=== PATIENT | male | born 1980 | race Caucasian/White ===

== ENCOUNTER 2019-02-26 19:48 | Emergency (ER) | payer OTHER ==
[~2019-02-26] VITALS: Ht 182.9 cm; Wt 113.4 kg
[~2019-02-26 19:48] MED LIST: CEPH500 PO; HYDACE5 PO; IBUP600 PO; IBUP800 PO; METO10 PO; OXYACE5T PO; PENVK500 PO; SULTRISS PO
== END 2019-02-26 20:50 | disposition home or self-care (01) ==
LOC: ER 19:48
DX: S29.011A Strain of muscle and tendon of front wall of thorax, initial encounter (principal); X58.XXXA Exposure to other specified factors, initial encounter
CPT/HCPCS: 71101; 99283-25

== ENCOUNTER 2019-03-01 19:18 | Emergency (ER) | payer OTHER ==
[~2019-03-01] VITALS: Ht 182.9 cm; Wt 115.7 kg
[2019-03-01] MEDS ORDERED: Voltaren100 GM TOP (21:35)
== END 2019-03-01 21:45 | disposition home or self-care (01) ==
LOC: ER 19:18
DX: S22.32XA Fracture of one rib, left side, initial encounter for closed fracture (principal); F17.210 Nicotine dependence, cigarettes, uncomplicated; Z88.5 Allergy status to narcotic agent; X58.XXXA Exposure to other specified factors, initial encounter
CPT/HCPCS: 71101; 96372; 99284-25; J1885

== ENCOUNTER 2019-03-07 13:38 | Inpatient (IN) | payer OTHER ==
[~2019-03-07] VITALS: Ht 182.9 cm; Wt 117.9 kg
[~2019-03-07 13:38] MED LIST changes: +Voltaren100 GM TOP
[2019-03-07 15:12] LABS: BASOPHILS ABSOLUTE AUTO 0.02 K/mm3 (0.00-0.23); BASOPHILS PERCENT AUTO 0 % (0-2); EOSINOPHILS ABSOLUTE AUTO 0.04 K/mm3 (0.00-0.68); EOSINOPHILS PERCENT AUTO 0 % (0-6); Hematocrit 46.6 % (37.0-53.0); Hemoglobin 15.7 g/dL (13.5-17.5); IMMATURE GRAN ABSOLUTE AUTO 0.03 K/mm3 (0.00-0.10); IMMATURE GRAN PERCENT AUTO 0 % (0-1); LYMPHOCYTES PERCENT AUTO 11 % (21-46); MONOCYTES PERCENT AUTO 6 % (4-13); Mean Corpuscular HGB 28.8 pg (26.0-34.0); Mean Corpuscular HGB Conc 33.7 g/dL (31.5-36.5); Mean Corpuscular Volume 86 fL (80-100); Mean Platelet Volume 9.6 fL (9.1-12.4); NEUTROPHILS PERCENT AUTO 82 % (41-73); Platelet Count 166 K/mm3 (150-400); RDW Coefficient Variation 12.7 % (11.7-14.2); RDW Standard Deviation 39.2 fL (35.1-46.3); Red Blood Cell Count 5.45 M/mm3 (4.30-5.90); White Blood Cell Count 9.79 K/mm3 (4.00-11.30)
[2019-03-07 15:27] LABS: Alanine Aminotransfer (ALT/SGP 91 U/L (12-78); Albumin, Blood 3.5 g/dL (3.4-5.0); Albumin/Globulin Ratio 0.8 (0.8-1.8); Alk Phos 148 U/L (50-136); Anion Gap 8 mmol/L (6-16); Aspartate Aminotrans (AST/SGOT 107 U/L (12-37); Bilirubin, Total 1.6 mg/dL (0.1-1.0); Blood Urea Nitrogen 15 mg/dL (8-24); Bun/Creatinine Ratio 12.2 (12.0-20.0); CO2, Blood 24 mmol/L (21-32); Calcium, Blood 9.5 mg/dL (8.5-10.1); Chloride, Blood 100 mmol/L (98-108); Creatinine, Blood 1.23 mg/dL (0.60-1.20); Globulin, Blood 4.5 g/dL (2.2-4.0); Glomerular Filtration Rate >60 (60-); Glucose, Blood 103 mg/dL (70-99); Potassium, Blood 3.6 mmol/L (3.5-5.5); Sodium, Blood 132 mmol/L (136-145)
[2019-03-07 16:03] LABS: Source, Urine Clean Catch
[2019-03-07 16:15] LABS: Bilirubin, Urine Neg (Neg); Blood, Urine Neg (Neg); Glucose Qualitative, Urine Neg (Neg); Ketones, Urine 1+ (Neg); Leukocyte Esterase, Urine Neg (Neg); Nitrite, Urine Neg (Neg); Protein, Urine Neg (Neg); Urobilinogen, Urine NORM (Normal)
[2019-03-07 16:18] LABS: Appearance, Urine Clear (Clear); Color, Urine Yellow (P-Yellow)
--- NOTE | 2019-03-07 18:56 | NUR ---
PT AOX4 AND INDEPENDENT. PT SETTLED INTO ROOM AND CALL LIGHT WITHIN REACH. TREATED FOR PAIN PER EMAR X1. WILL CONTINUE TO MONITOR.
--- NOTE | 2019-03-08 04:51 | NUR ---
SHIFT SUMMARY PT ADMITTED FOR PANCREATITIS. HE WAS IN SEVERE PAIN YESTERDAY. HE RECEIVED DILAUDID MULTIPLE TIMES THIS SHIFT. HIS HR AND BP WERE ELEVATED AND THE MD HAS BEEN CONTACTED MULTIPLE TIMES WELL. AT APPROX 2300, STATED HE COULD HAVE DILAUDID 1MG ONE TIME FOR SEVERE PAIN. THIS HELPED HIS PAIN A BIT BUT NOT HIS VS. HIS BP WAS AVERAGING 150/108 AND HR WAS 140+. CALLED MD AND HE AUTHORIZED LOBETALOL FOR HTN AND ELEVATED PULSE. IT BROUGHT HIS HR DOWN A BIT TO 135 BPM BUT HIS BP REMAINED ABOUT THE SAME. HE WAS ALSO PUT ON TELEMETRY AT THIS TIME. CALLED PCU AND SPOKE WITH GIL TO GET TELE RESULTS. HE WAS SINUS TACH IN THE 120'S AFTER THE LOBETALOL FOR A SHORT TIME THEN HIS HR WENT BACK UP TO 130'S. CALLED THE MD AGAIN AT APPROX 0245 AND MD ORDERED METOPROLOL 5MG. BEFORE ADMINISTERING THE METOPROLOL, HIS HR WAS SINUS TACH AND IN THE 130'S, THEN AFTER THE METOPROLOL, IT WENT DOWN TO 110-118. IT REMAINED DOWN FOR AWHILE EXCEPT WHEN UP TO BATHROOM. HE ALSO C/O ACID REFLUX 0400 AND HE RECEIVED ZOFRAN 4MG VIA IV, WHICH WAS EFFECTIVE IN RELIEVING THE REFLUX. SPOKE WITH PCU AGAIN AND HIS TELE IS AVERAGING 134 BPM IN SINUS TACH THIS MORNING.
[2019-03-08 05:05] LABS: BASOPHILS ABSOLUTE AUTO 0.03 K/mm3 (0.00-0.23); BASOPHILS PERCENT AUTO 0 % (0-2); EOSINOPHILS ABSOLUTE AUTO 0.08 K/mm3 (0.00-0.68); EOSINOPHILS PERCENT AUTO 1 % (0-6); Hemoglobin 15.9 g/dL (13.5-17.5); IMMATURE GRAN ABSOLUTE AUTO 0.12 K/mm3 (0.00-0.10); IMMATURE GRAN PERCENT AUTO 1 % (0-1); LYMPHOCYTES ABSOLUTE AUTO 0.96 K/mm3 (0.84-5.20); LYMPHOCYTES PERCENT AUTO 7 % (21-46); MONOCYTES ABSOLUTE AUTO 0.78 K/mm3 (0.16-1.47); MONOCYTES PERCENT AUTO 6 % (4-13); Mean Corpuscular HGB 29.4 pg (26.0-34.0); Mean Corpuscular HGB Conc 33.1 g/dL (31.5-36.5); Mean Platelet Volume 10.2 fL (9.1-12.4); NEUTROPHILS ABSOLUTE AUTO 11.53 K/mm3 (1.96-9.15); NEUTROPHILS PERCENT AUTO 85 % (41-73); Platelet Count 160 K/mm3 (150-400); RDW Coefficient Variation 13.2 % (11.7-14.2)
[2019-03-08 05:06] LABS: Mean Corpuscular Volume 89 fL (80-100)
[2019-03-08 05:39] LABS: Anion Gap 8 mmol/L (6-16); Blood Urea Nitrogen 12 mg/dL (8-24); Bun/Creatinine Ratio 9.2 (12.0-20.0); CO2, Blood 23 mmol/L (21-32); Calcium, Blood 8.5 mg/dL (8.5-10.1); Chloride, Blood 103 mmol/L (98-108); Cholesterol 208 mg/dL (50-200); Creatinine, Blood 1.31 mg/dL (0.60-1.20); Glomerular Filtration Rate >60 (60-); Glucose, Blood 103 mg/dL (70-99); HDL Cholesterol 23 mg/dL (>39); LDL/HDL RATIO Unable to Calculate; Low Density Lipoprotein Chol Unable to Calculate mg/dL (0-110); Magnesium, Blood 1.7 mg/dL (1.6-2.4); Phosphorus, Blood 2.8 mg/dL (2.5-4.9); Potassium, Blood 5.4 mmol/L (3.5-5.5); Sodium, Blood 134 mmol/L (136-145); Triglycerides 901 mg/dL (30-160); Very Low Density Lipoprot Chol Unable to Calculate mg/dL (6-32)
--- NOTE | 2019-03-08 17:16 | NUR ---
PT AOX4 AND COOPERATIVE OF CARE. PT STARTED OUT SHIFT WITH ABDOMINIAL PAIN AND WAS TREATED PER EMAR. PAIN HAS IMPROVE THROUGH THE DAY AND LAST TWO DOSES HAVE BEEN A DECREASED AMOUNT. PT BP 143/ 99 P123 AT 0750, TREATED WITH 50MG METOPROLOL AND BP 134/89 P113 AT 1539 MEDICATION SEEMS EFFECTIVE AT THIS TIME. PT REPORTS HE IS FEELING IMPROVED THIS AFTERNOON. PT INDEPENDENT WILL CONTINUE TO MONITOR.
[2019-03-09 05:06] LABS: BASOPHILS ABSOLUTE AUTO 0.03 K/mm3 (0.00-0.23); BASOPHILS PERCENT AUTO 0 % (0-2); EOSINOPHILS ABSOLUTE AUTO 0.15 K/mm3 (0.00-0.68); EOSINOPHILS PERCENT AUTO 1 % (0-6); Hematocrit 40.1 % (37.0-53.0); Hemoglobin 12.8 g/dL (13.5-17.5); IMMATURE GRAN ABSOLUTE AUTO 0.24 K/mm3 (0.00-0.10); IMMATURE GRAN PERCENT AUTO 2 % (0-1); LYMPHOCYTES ABSOLUTE AUTO 0.88 K/mm3 (0.84-5.20); LYMPHOCYTES PERCENT AUTO 7 % (21-46); MONOCYTES ABSOLUTE AUTO 0.92 K/mm3 (0.16-1.47); MONOCYTES PERCENT AUTO 8 % (4-13); Mean Corpuscular HGB 29.2 pg (26.0-34.0); Mean Corpuscular HGB Conc 31.9 g/dL (31.5-36.5); NEUTROPHILS ABSOLUTE AUTO 10.11 K/mm3 (1.96-9.15); NEUTROPHILS PERCENT AUTO 82 % (41-73); Platelet Count 121 K/mm3 (150-400); RDW Coefficient Variation 13.2 % (11.7-14.2); RDW Standard Deviation 44.8 fL (35.1-46.3); Red Blood Cell Count 4.38 M/mm3 (4.30-5.90); White Blood Cell Count 12.33 K/mm3 (4.00-11.30)
[2019-03-09 05:08] LABS: Mean Corpuscular Volume 92 fL (80-100)
--- NOTE | 2019-03-09 05:37 | NUR ---
SHIFT SUMMARY SLEPT ON/OFF T/O NIGHT. STATES PAIN IN MID-L SIDE ABD 7/10, MEDICATED 3X W/2MG DILAUDID PER ORDERS. REPORTS PAIN DECREASES TO 3/10 WHEN REASSESSED. CONT PULSE OX WAS ALARMING LAST NIGHT & SPO2 @88% AFTER PT RECIEVED PAIN MEDS, PT CURRENTLY ON 2L O2 NC, PLACED BY RT. DENIES ANY DYSPNEA, OR N/V. IS PASSING GAS & BELCHING FREQUENTLY. FLUIDS RUNNING @125ML/HR PER ORDERS. TELE IN PLACE, RUNNING SINUS TACH W/HR 115-127. PT HAD LOW GRADE TEMP OF 100.4 @BEGINNING OF SHIFT & TYLENOL WAS GIVEN AROUND SHIFT CHANGE & TEMP HAS BEEN TRNDING DOWN SINCE, THIS AM TEMP IS 99.5. CALL LIGHT IS IN REACH & SIGNIFICANT OTHER HAS BEEN @BEDSIDE T/O NIGHT. I WCTM UNTIL DAY SHIFT RN ASSUMES CARE.
[2019-03-09 05:40] LABS: Bun/Creatinine Ratio 9.6 (12.0-20.0); Calcium, Blood 7.6 mg/dL (8.5-10.1); Creatinine, Blood 1.67 mg/dL (0.60-1.20); Magnesium, Blood 1.3 mg/dL (1.6-2.4); Potassium, Blood 4.6 mmol/L (3.5-5.5)
[2019-03-09 11:10] LABS: Source, Urine Clean Catch
[2019-03-09 11:42] LABS: Appearance, Urine Clear (Clear); Bilirubin, Urine Neg (Neg); Blood, Urine 2+ (Neg); Color, Urine Yellow (P-Yellow); Glucose Qualitative, Urine Neg (Neg); Ketones, Urine Neg (Neg); Leukocyte Esterase, Urine Neg (Neg); Nitrite, Urine Neg (Neg); Protein, Urine 2+ (Neg); Urobilinogen, Urine 1+ (Normal)
[2019-03-09 11:55] LABS: Bacteria Rare /hpf; Red Blood Cells, Urine 0-2 /hpf (0-2); Squamous Epithelial Cells Not Seen /hpf (Few); White Blood Cells, Urine 0-2 /hpf (0-5)
--- NOTE | 2019-03-09 18:13 | NUR ---
Shift Summary A/Ox4. Pleasant and cooperative. Medicated for LUQ 09/26 pain x 4 with results down to 3-06/27. Pt still on 2L NC with SPO2 ranging 92-96%. Pt remains tachycardic t/o the day. Denies nausea, vomiting. Last oral temp 100.5, will medicate with Tylenol and monitor. No other concerns at this time.
[2019-03-10 05:12] LABS: BASOPHILS ABSOLUTE AUTO 0.03 K/mm3 (0.00-0.23); BASOPHILS PERCENT AUTO 0 % (0-2); EOSINOPHILS ABSOLUTE AUTO 0.16 K/mm3 (0.00-0.68); EOSINOPHILS PERCENT AUTO 2 % (0-6); IMMATURE GRAN ABSOLUTE AUTO 0.21 K/mm3 (0.00-0.10); IMMATURE GRAN PERCENT AUTO 2 % (0-1); LYMPHOCYTES ABSOLUTE AUTO 0.99 K/mm3 (0.84-5.20); LYMPHOCYTES PERCENT AUTO 10 % (21-46); MONOCYTES ABSOLUTE AUTO 0.74 K/mm3 (0.16-1.47); MONOCYTES PERCENT AUTO 8 % (4-13); Mean Corpuscular HGB 29.4 pg (26.0-34.0); Mean Corpuscular HGB Conc 32.4 g/dL (31.5-36.5); Mean Corpuscular Volume 91 fL (80-100); Mean Platelet Volume 9.9 fL (9.1-12.4); NEUTROPHILS ABSOLUTE AUTO 7.43 K/mm3 (1.96-9.15); NEUTROPHILS PERCENT AUTO 78 % (41-73); Platelet Count 132 K/mm3 (150-400); RDW Coefficient Variation 13.1 % (11.7-14.2); RDW Standard Deviation 43.3 fL (35.1-46.3); Red Blood Cell Count 4.08 M/mm3 (4.30-5.90); White Blood Cell Count 9.56 K/mm3 (4.00-11.30)
[2019-03-10 05:37] LABS: Albumin, Blood 2.3 g/dL (3.4-5.0); Anion Gap 7 mmol/L (6-16); Blood Urea Nitrogen 13 mg/dL (8-24); CO2, Blood 26 mmol/L (21-32); Calcium, Blood 8.1 mg/dL (8.5-10.1); Chloride, Blood 98 mmol/L (98-108); Glomerular Filtration Rate >60 (60-); Glucose, Blood 98 mg/dL (70-99); Phosphorus, Blood 1.7 mg/dL (2.5-4.9); Potassium, Blood 3.9 mmol/L (3.5-5.5); Sodium, Blood 131 mmol/L (136-145)
--- NOTE | 2019-03-10 07:18 | NUR ---
SHIFT SUMMARY AOX4. VSS, AFEBRILE T/O NIGHT. TELE IN PLACE, SINUS TACH W/HR 104. REPORTS PAIN 4-6/10 IN ABD, MEDICATED W/DILAUDID PER ORDERS. STATES HE FEELS HIS PAIN IS GETTING BETTER. HAD A FEW LIQUID ORANGE BM THIS SHIFT. DENIES N/V OR SOB. CALL LIGHT IN REACH.
--- NOTE | 2019-03-10 09:00 | NUR ---
Clear Liquid Per Dr. Perez, verbal orders received to start clear liquid. NPO changed to Clear liquid diet.
--- NOTE | 2019-03-10 13:26 | NUR ---
DC Tele & IV hydration Patient tolerating PO fluids well. Dr. Perez informed, orders received to DC IV NS. Also received orders to DC tele.
--- NOTE | 2019-03-10 16:31 | NUR ---
Shift Summary A/Ox4. Patient has been a little anxious about going home for the holidays because his kids will be traveling from [place] to see him. This afternoon, a little over intermediate through receiving Sodium Phosphate, pt c/o dizziness, flushed feeling, slightly blurred vision, and nausea; however, pt did not c/o of this yesterday. Pt did start on a clear liquid diet today and went outside to smoke 2 times today prior to onset of symptoms. These did improve after Sodium Phosphate was stopped. Pt has been on RA and saturating >95%, denies SOB. Afebrile and HR up to 108. Medicated for 6/10 pain x 1 with good results down to 2/10. Medicated for headache x 1. No other concerns, will continue to monitor.
--- NOTE | 2019-03-10 18:14 | NUR ---
assumed care assumed care of patient at dinnertie. patietn denies pain, nausea, and shortness of breath. call light in reach.
[2019-03-11 05:05] LABS: BASOPHILS ABSOLUTE AUTO 0.03 K/mm3 (0.00-0.23); BASOPHILS PERCENT AUTO 0 % (0-2); EOSINOPHILS ABSOLUTE AUTO 0.17 K/mm3 (0.00-0.68); EOSINOPHILS PERCENT AUTO 3 % (0-6); Hematocrit 37.1 % (37.0-53.0); Hemoglobin 11.9 g/dL (13.5-17.5); IMMATURE GRAN ABSOLUTE AUTO 0.17 K/mm3 (0.00-0.10); IMMATURE GRAN PERCENT AUTO 3 % (0-1); LYMPHOCYTES ABSOLUTE AUTO 1.05 K/mm3 (0.84-5.20); LYMPHOCYTES PERCENT AUTO 16 % (21-46); MONOCYTES ABSOLUTE AUTO 0.61 K/mm3 (0.16-1.47); MONOCYTES PERCENT AUTO 9 % (4-13); Mean Corpuscular HGB 28.9 pg (26.0-34.0); Mean Corpuscular HGB Conc 32.1 g/dL (31.5-36.5); Mean Corpuscular Volume 90 fL (80-100); Mean Platelet Volume 9.5 fL (9.1-12.4); NEUTROPHILS ABSOLUTE AUTO 4.71 K/mm3 (1.96-9.15); NEUTROPHILS PERCENT AUTO 70 % (41-73); Platelet Count 168 K/mm3 (150-400); RDW Coefficient Variation 12.9 % (11.7-14.2); RDW Standard Deviation 42.7 fL (35.1-46.3); Red Blood Cell Count 4.12 M/mm3 (4.30-5.90); White Blood Cell Count 6.74 K/mm3 (4.00-11.30)
[2019-03-11 05:26] LABS: Albumin, Blood 2.2 g/dL (3.4-5.0); Anion Gap 8 mmol/L (6-16); Blood Urea Nitrogen 8 mg/dL (8-24); Bun/Creatinine Ratio 9.4 (12.0-20.0); CO2, Blood 27 mmol/L (21-32); Calcium, Blood 8.6 mg/dL (8.5-10.1); Chloride, Blood 98 mmol/L (98-108); Creatinine, Blood 0.85 mg/dL (0.60-1.20); Glomerular Filtration Rate >60 (60-); Glucose, Blood 97 mg/dL (70-99); Phosphorus, Blood 1.8 mg/dL (2.5-4.9); Potassium, Blood 3.6 mmol/L (3.5-5.5); Sodium, Blood 133 mmol/L (136-145)
[2019-03-11] MEDS ORDERED: METO50 PO (09:31)
[2019-03-11] MEDS ORDERED: TRAM50 PO (09:32)
[2019-03-11] MEDS ORDERED: ONDA4 PO (09:32)
[2019-03-11] MEDS ORDERED: LEVO750 PO (09:33)
--- NOTE | 2019-03-11 10:23 | NUR ---
DISCHARGE DISCHARGE MEDICATIONS AND INSTRUCTIONS EXPLAINED TO PATIENT. PATIENT STATED UNDERSTANDING. CARE MANAGEMENT PROVIDED PATIENT [employer] [facility] PATIENT DOES NOT HAVE PCP. IV REMOVED WITHOUT DIFFICULTY. BELONGINGS WITH PATIENT. PATIENT AMBULATED TO PRIVATE VEHICLE WITH RN.
== END 2019-03-11 09:45 | disposition home or self-care (01) | DRG 438 ==
LOC: ER 13:38 → MEDS 16:29 → ENPENDDIS 03-11 08:31 → MEDS 03-11 09:45
PROVIDERS: Family Medicine; Physician Assistant; ADMIT Hospitalist
DX: K85.90 Acute pancreatitis without necrosis or infection, unspecified (principal); J18.9 Pneumonia, unspecified organism; E87.1 Hypo-osmolality and hyponatremia; N17.9 Acute kidney failure, unspecified; J98.11 Atelectasis; E83.39 Other disorders of phosphorus metabolism; D64.9 Anemia, unspecified; D69.6 Thrombocytopenia, unspecified; I10 Essential (primary) hypertension; E83.42 Hypomagnesemia; R00.0 Tachycardia, unspecified; E66.01 Morbid (severe) obesity due to excess calories; F17.210 Nicotine dependence, cigarettes, uncomplicated; Z68.35 Body mass index [BMI] 35.0-35.9, adult
CPT/HCPCS: 36415; 71046; 74177; 80048; 80053; 80061; 80069; 81001; 81003; 83605; 83690; 83735; 84100; 84145; 85025; 87040; 94762; 96361; 96374-59; 96375; 99285-25; A9270; J0360; J1170; J1650; J1956; J2405; J3475; J3480; J7030; J7060; Q9967

== ENCOUNTER 2019-07-20 16:23 | Inpatient (IN) | payer OTHER ==
[~2019-07-20] VITALS: Ht 182.9 cm; Wt 119.3 kg
[~2019-07-20 16:23] MED LIST changes: +LEVO750 PO; +METO100ER PO; +ONDA4 PO; +TRAM50 PO
[2019-07-20 17:00] LABS: BASOPHILS ABSOLUTE AUTO 0.03 K/mm3 (0.00-0.23); BASOPHILS PERCENT AUTO 0 % (0-2); EOSINOPHILS ABSOLUTE AUTO 0.01 K/mm3 (0.00-0.68); EOSINOPHILS PERCENT AUTO 0 % (0-6); Hematocrit 49.4 % (37.0-53.0); Hemoglobin 17.3 g/dL (13.5-17.5); IMMATURE GRAN ABSOLUTE AUTO 0.02 K/mm3 (0.00-0.10); IMMATURE GRAN PERCENT AUTO 0 % (0-1); LYMPHOCYTES ABSOLUTE AUTO 1.45 K/mm3 (0.84-5.20); LYMPHOCYTES PERCENT AUTO 16 % (21-46); MONOCYTES ABSOLUTE AUTO 0.68 K/mm3 (0.16-1.47); MONOCYTES PERCENT AUTO 8 % (4-13); Mean Corpuscular HGB 29.8 pg (26.0-34.0); Mean Corpuscular Volume 85 fL (80-100); Mean Platelet Volume 9.1 fL (9.1-12.4); NEUTROPHILS ABSOLUTE AUTO 6.86 K/mm3 (1.96-9.15); NEUTROPHILS PERCENT AUTO 76 % (41-73); Platelet Count 156 K/mm3 (150-400); RDW Coefficient Variation 13.3 % (11.7-14.2); RDW Standard Deviation 41.2 fL (35.1-46.3); Red Blood Cell Count 5.81 M/mm3 (4.30-5.90); White Blood Cell Count 9.05 K/mm3 (4.00-11.30)
[2019-07-20 17:20] LABS: Alanine Aminotransfer (ALT/SGP 262 U/L (12-78); Albumin, Blood 3.7 g/dL (3.4-5.0); Albumin/Globulin Ratio 0.8 (0.8-1.8); Alk Phos 150 U/L (50-136); Anion Gap 10 mmol/L (6-16); Aspartate Aminotrans (AST/SGOT 154 U/L (12-37); Bilirubin, Total 1.7 mg/dL (0.1-1.0); Blood Urea Nitrogen 14 mg/dL (8-24); Bun/Creatinine Ratio 13.9 (12.0-20.0); CO2, Blood 23 mmol/L (21-32); Calcium, Blood 8.7 mg/dL (8.5-10.1); Chloride, Blood 100 mmol/L (98-108); Cholesterol 243 mg/dL (50-200); Creatinine, Blood 1.01 mg/dL (0.60-1.20); Globulin, Blood 4.7 g/dL (2.2-4.0); Glomerular Filtration Rate >60 (60-); Glucose, Blood 114 mg/dL (70-99); Magnesium, Blood 1.5 mg/dL (1.6-2.4); Potassium, Blood 3.2 mmol/L (3.5-5.5); Sodium, Blood 133 mmol/L (136-145); Total Protein, Blood 8.4 g/dL (6.4-8.2)
[2019-07-20 17:21] LABS: Triglycerides 988 mg/dL (30-160)
--- NOTE | 2019-07-21 04:49 | NUR ---
SUMMARY PT ARRIVED TO FLOOR IN SOME DISCOMFORT. PT HAS TX PER EMAR WITH GOOD RELIEF. PT HAD NO OTHER ISSUES NOTED. PT HAS BEEN ABLE TO SLEEP WELL. PT CURRENTLY AWAKE W/ SOME DISCOMFORT. WILL BE MEDICATING PT ORDERED. CALL LIGHT IN REACH.
[2019-07-21 05:09] LABS: BASOPHILS ABSOLUTE AUTO 0.03 K/mm3 (0.00-0.23); BASOPHILS PERCENT AUTO 0 % (0-2); EOSINOPHILS PERCENT AUTO 1 % (0-6); Hematocrit 46.1 % (37.0-53.0); Hemoglobin 15.7 g/dL (13.5-17.5); IMMATURE GRAN ABSOLUTE AUTO 0.04 K/mm3 (0.00-0.10); IMMATURE GRAN PERCENT AUTO 1 % (0-1); LYMPHOCYTES ABSOLUTE AUTO 1.52 K/mm3 (0.84-5.20); LYMPHOCYTES PERCENT AUTO 19 % (21-46); MONOCYTES ABSOLUTE AUTO 0.61 K/mm3 (0.16-1.47); MONOCYTES PERCENT AUTO 8 % (4-13); Mean Corpuscular HGB 29.4 pg (26.0-34.0); Mean Corpuscular HGB Conc 34.1 g/dL (31.5-36.5); Mean Corpuscular Volume 86 fL (80-100); Mean Platelet Volume 9.4 fL (9.1-12.4); NEUTROPHILS ABSOLUTE AUTO 5.84 K/mm3 (1.96-9.15); NEUTROPHILS PERCENT AUTO 72 % (41-73); Platelet Count 107 K/mm3 (150-400); RDW Coefficient Variation 13.5 % (11.7-14.2); RDW Standard Deviation 43.2 fL (35.1-46.3); Red Blood Cell Count 5.34 M/mm3 (4.30-5.90); White Blood Cell Count 8.14 K/mm3 (4.00-11.30)
[2019-07-21 05:31] LABS: Alanine Aminotransfer (ALT/SGP 177 U/L (12-78); Albumin/Globulin Ratio 0.7 (0.8-1.8); Alk Phos 125 U/L (50-136); Anion Gap 9 mmol/L (6-16); Aspartate Aminotrans (AST/SGOT 98 U/L (12-37); Bilirubin, Total 1.6 mg/dL (0.1-1.0); Blood Urea Nitrogen 10 mg/dL (8-24); Bun/Creatinine Ratio 9.4 (12.0-20.0); CO2, Blood 24 mmol/L (21-32); Calcium, Blood 8.5 mg/dL (8.5-10.1); Chloride, Blood 100 mmol/L (98-108); Creatinine, Blood 1.06 mg/dL (0.60-1.20); Globulin, Blood 4.5 g/dL (2.2-4.0); Glomerular Filtration Rate >60 (60-); Glucose, Blood 102 mg/dL (70-99); Potassium, Blood 3.6 mmol/L (3.5-5.5); Sodium, Blood 133 mmol/L (136-145); Total Protein, Blood 7.5 g/dL (6.4-8.2)
--- NOTE | 2019-07-21 17:03 | NUR ---
PT AOX4 AND COOPERATIVE OF ALL CARE. PT HAS HAD ABDOMINAL PAIN TREATED PER EMAR. BP HAS BEEN HIGH TODAY AND DOTOR IS AWARE ADDED METOPROLOL TO EMAR. PT JUST RECEIVE MED FOR HIGH BP PER EMAR WILL RECHECK. PT CALLS APPROPRIATELY. WILL CONTINUE TO MONITOR.
--- NOTE | 2019-07-21 19:15 | NUR ---
ASSUMED CARE RECEIVED REPORT FROM SATURNINO KING. ASSUMED CARE OF PT. RESTING COMFORTABLY AT THIS TIME, NO S/S ACUTE DISTRESS NOTED. CALL LIGHT, POSSESSIONS IN REACH, WILL CONTINUE TO MONITOR.
--- NOTE | 2019-07-22 04:50 | NUR ---
SHIFT SUMMARY PT SLEPT ON AND OFF T/O NIGHT, NO ACUTE EVENTS NOTED. BP STABLE AT THIS TIME. PAIN CONTROLLED WITH MEDICATIONS ORDERED, PT COMFORTABLE AT THIS TIME. WAS MONITORED EVERY 1-2 HOURS WITH NEEDS MET, DENIES NEEDS AT THIS TIME. CALL LIGHT, POSSESSIONS IN REACH, BED ALARM ON. WILL CONTINUE TO MONITOR UNTIL DAY RN ASSUMES CARE.
[2019-07-22] MEDS ORDERED: ACET325 PO (10:42)
[2019-07-22] MEDS ORDERED: SENNA PLUS 8.61 EACH PO (10:43)
[2019-07-22] MEDS ORDERED: TRAM50 PO (10:45)
--- NOTE | 2019-07-22 11:29 | NUR ---
PT DISCHARGED. PT DISCHARGED IN STABLE CONDITION WITH VSS. PT EDUCATED ON DC INSTRUCTIONS AND FOLLOW UP APPOINTMENT. HARD SCRIPT GIVEN TO PT. PT ESCORTED OUT BY THIS RN. TO BE DRIVEN HOME BY MOTHER.
== END 2019-07-22 11:22 | disposition home or self-care (01) | DRG 440 ==
LOC: ER 16:23 → MEDS 19:23
PROVIDERS: Emergency Medicine; ADMIT Internal Medicine
DX: K85.20 Alcohol induced acute pancreatitis without necrosis or infection (principal); E78.1 Pure hyperglyceridemia; I10 Essential (primary) hypertension; K76.0 Fatty (change of) liver, not elsewhere classified; K86.0 Alcohol-induced chronic pancreatitis; F17.210 Nicotine dependence, cigarettes, uncomplicated; E66.9 Obesity, unspecified; Z68.33 Body mass index [BMI] 33.0-33.9, adult
CPT/HCPCS: 36415; 74176; 80053; 82465; 83690; 83735; 84478; 85025; 96361; 96365; 96372-59; 96375; 99285-25; C9113; J0780; J1170; J1200; J1650; J3411; J3475; J7030; J7042

== ENCOUNTER → 2020-01-20 | Outpatient (CLI) | payer OTHER ==
[~2020-01-20] MED LIST changes: +ACET325 PO; +SENNA PLUS 8.61 EACH PO
[2020-01-20 09:21] LABS: BASOPHILS ABSOLUTE AUTO 0.06 K/mm3 (0.00-0.23); BASOPHILS PERCENT AUTO 1 % (0-2); EOSINOPHILS ABSOLUTE AUTO 0.11 K/mm3 (0.00-0.68); EOSINOPHILS PERCENT AUTO 2 % (0-6); Hematocrit 47.6 % (37.0-53.0); Hemoglobin 16.6 g/dL (13.5-17.5); IMMATURE GRAN ABSOLUTE AUTO 0.05 K/mm3 (0.00-0.10); IMMATURE GRAN PERCENT AUTO 1 % (0-1); LYMPHOCYTES ABSOLUTE AUTO 1.78 K/mm3 (0.84-5.20); LYMPHOCYTES PERCENT AUTO 24 % (21-46); MONOCYTES ABSOLUTE AUTO 0.39 K/mm3 (0.16-1.47); MONOCYTES PERCENT AUTO 5 % (4-13); Mean Corpuscular HGB 30.5 pg (26.0-34.0); Mean Corpuscular HGB Conc 34.9 g/dL (31.5-36.5); Mean Corpuscular Volume 87 fL (80-100); Mean Platelet Volume 9.1 fL (9.1-12.4); NEUTROPHILS PERCENT AUTO 68 % (41-73); Platelet Count 167 K/mm3 (150-400); RDW Coefficient Variation 12.8 % (11.7-14.2); RDW Standard Deviation 40.5 fL (35.1-46.3); Red Blood Cell Count 5.45 M/mm3 (4.30-5.90); White Blood Cell Count 7.49 K/mm3 (4.00-11.30)
== END | disposition home or self-care (01) ==
LOC: LAB EV 09:15 → LAB SHORT 09:15
PROVIDERS: Physician Assistant Medical
DX: M25.542 Pain in joints of left hand (principal)
CPT/HCPCS: 84550; 85025

== ENCOUNTER 2020-03-16 10:18 | Emergency (ER) | payer OTHER ==
[~2020-03-16] VITALS: Ht 182.9 cm; Wt 117.9 kg
[2020-03-16 10:48] LABS: BASOPHILS ABSOLUTE AUTO 0.05 K/mm3 (0.00-0.23); BASOPHILS PERCENT AUTO 1 % (0-2); EOSINOPHILS PERCENT AUTO 2 % (0-6); Hematocrit 48.6 % (37.0-53.0); Hemoglobin 16.3 g/dL (13.5-17.5); IMMATURE GRAN ABSOLUTE AUTO 0.02 K/mm3 (0.00-0.10); IMMATURE GRAN PERCENT AUTO 0 % (0-1); LYMPHOCYTES ABSOLUTE AUTO 2.12 K/mm3 (0.84-5.20); LYMPHOCYTES PERCENT AUTO 33 % (21-46); MONOCYTES ABSOLUTE AUTO 0.46 K/mm3 (0.16-1.47); MONOCYTES PERCENT AUTO 7 % (4-13); Mean Corpuscular HGB 29.3 pg (26.0-34.0); Mean Corpuscular HGB Conc 33.5 g/dL (31.5-36.5); Mean Corpuscular Volume 87 fL (80-100); Mean Platelet Volume 9.6 fL (9.1-12.4); NEUTROPHILS ABSOLUTE AUTO 3.78 K/mm3 (1.96-9.15); NEUTROPHILS PERCENT AUTO 58 % (41-73); NRBC ABSOLUTE 0.02 K/mm3 (0.00-0.02); NRBC Auto 0.3 /100 WBC (0.0-0.2); Platelet Count 162 K/mm3 (150-400); RDW Coefficient Variation 12.7 % (11.7-14.2); RDW Standard Deviation 40.8 fL (35.1-46.3); Red Blood Cell Count 5.57 M/mm3 (4.30-5.90); White Blood Cell Count 6.53 K/mm3 (4.00-11.30)
[2020-03-16 11:11] LABS: Alanine Aminotransfer (ALT/SGP 174 U/L (12-78); Albumin, Blood 3.5 g/dL (3.4-5.0); Albumin/Globulin Ratio 0.8 (0.8-1.8); Alk Phos 128 U/L (50-136); Anion Gap 9 mmol/L (6-16); Aspartate Aminotrans (AST/SGOT 148 U/L (12-37); Bilirubin, Total 0.5 mg/dL (0.1-1.0); Blood Urea Nitrogen 12 mg/dL (8-24); Bun/Creatinine Ratio 12.9 (12.0-20.0); CO2, Blood 24 mmol/L (21-32); Calcium, Blood 8.9 mg/dL (8.5-10.1); Chloride, Blood 107 mmol/L (98-108); Creatinine, Blood 0.93 mg/dL (0.60-1.20); Globulin, Blood 4.5 g/dL (2.2-4.0); Glomerular Filtration Rate >60 (60-); Glucose, Blood 118 mg/dL (70-99); Potassium, Blood 4.2 mmol/L (3.5-5.5); Sodium, Blood 140 mmol/L (136-145); Troponin I <0.015 ng/mL (0.000-0.040)
[2020-03-16] MEDS ORDERED: ONDA4ODT MM (11:42)
[2020-03-16] MEDS ORDERED: OXYACE7.5T PO (11:42)
== END 2020-03-16 12:10 | disposition home or self-care (01) ==
LOC: ER 10:18
PROVIDERS: Emergency Medicine
DX: K85.90 Acute pancreatitis without necrosis or infection, unspecified (principal); I10 Essential (primary) hypertension; E78.1 Pure hyperglyceridemia; F17.210 Nicotine dependence, cigarettes, uncomplicated; Z88.5 Allergy status to narcotic agent; Z79.899 Other long term (current) drug therapy
CPT/HCPCS: 36415; 71046; 80053; 83690; 84484; 85025; 93005; 93010; 96374; 96375; 99284-25; J1170; J2405; J7030

== ENCOUNTER 2020-03-23 08:40 | Inpatient (IN) | payer OTHER ==
[~2020-03-23] VITALS: Ht 182.9 cm; Wt 121.6 kg
[~2020-03-23 08:40] MED LIST changes: +ONDA4ODT MM; +OXYACE7.5T PO
[2020-03-23 09:41] LABS: BASOPHILS ABSOLUTE AUTO 0.06 K/mm3 (0.00-0.23); BASOPHILS PERCENT AUTO 1 % (0-2); EOSINOPHILS ABSOLUTE AUTO 0.17 K/mm3 (0.00-0.68); EOSINOPHILS PERCENT AUTO 2 % (0-6); Hematocrit 40.1 % (37.0-53.0); Hemoglobin 13.5 g/dL (13.5-17.5); IMMATURE GRAN ABSOLUTE AUTO 0.54 K/mm3 (0.00-0.10); IMMATURE GRAN PERCENT AUTO 6 % (0-1); LYMPHOCYTES ABSOLUTE AUTO 2.02 K/mm3 (0.84-5.20); LYMPHOCYTES PERCENT AUTO 22 % (21-46); MONOCYTES ABSOLUTE AUTO 0.75 K/mm3 (0.16-1.47); MONOCYTES PERCENT AUTO 8 % (4-13); Mean Corpuscular HGB 29.7 pg (26.0-34.0); Mean Corpuscular HGB Conc 33.7 g/dL (31.5-36.5); Mean Corpuscular Volume 88 fL (80-100); Mean Platelet Volume 9.6 fL (9.1-12.4); NEUTROPHILS ABSOLUTE AUTO 5.61 K/mm3 (1.96-9.15); NEUTROPHILS PERCENT AUTO 61 % (41-73); Platelet Count 266 K/mm3 (150-400); RDW Coefficient Variation 12.6 % (11.7-14.2); Red Blood Cell Count 4.55 M/mm3 (4.30-5.90); White Blood Cell Count 9.15 K/mm3 (4.00-11.30)
[2020-03-23 10:04] LABS: Alanine Aminotransfer (ALT/SGP 88 U/L (12-78); Albumin, Blood 2.8 g/dL (3.4-5.0); Albumin/Globulin Ratio 0.5 (0.8-1.8); Alk Phos 166 U/L (50-136); Anion Gap 9 mmol/L (6-16); Aspartate Aminotrans (AST/SGOT 56 U/L (12-37); Bilirubin, Total 0.9 mg/dL (0.1-1.0); Blood Urea Nitrogen 19 mg/dL (8-24); Bun/Creatinine Ratio 15.1 (12.0-20.0); CO2, Blood 24 mmol/L (21-32); Calcium, Blood 9.8 mg/dL (8.5-10.1); Chloride, Blood 103 mmol/L (98-108); Creatinine, Blood 1.26 mg/dL (0.60-1.20); Globulin, Blood 5.5 g/dL (2.2-4.0); Glomerular Filtration Rate >60 (60-); Glucose, Blood 115 mg/dL (70-99); Potassium, Blood 3.4 mmol/L (3.5-5.5); Sodium, Blood 136 mmol/L (136-145); Total Protein, Blood 8.3 g/dL (6.4-8.2)
[2020-03-23 10:57] LABS: Source, Urine Clean Catch
[2020-03-23 11:13] LABS: Appearance, Urine Clear (Clear); Bilirubin, Urine Neg (Neg); Blood, Urine Neg (Neg); Color, Urine Yellow (P-Yellow); Glucose Qualitative, Urine Neg (Neg); Ketones, Urine Neg (Neg); Leukocyte Esterase, Urine Neg (Neg); Nitrite, Urine Neg (Neg); Protein, Urine Neg (Neg); Urobilinogen, Urine NORM (Normal)
[2020-03-23 11:49] LABS: Triglycerides 286 mg/dL (30-160)
[2020-03-23 15:33] LABS: U Amphetamine Screen Not Detected; U Barbituate Screen Not Detected; U Benzodiazapine Screen Not Detected; U Buprenorphine Screen Not Detected; U Cannabinoids Screen DETECTED; U Cocaine Screen Not Detected; U Methadone Screen Not Detected; U Methamphetamine Screen Not Detected; U Opiates Screen DETECTED; U Oxycodone Screen Not Detected; U Phencyclidine Screen Not Detected; U Propoxyphene Screen Not Detected
--- NOTE | 2020-03-23 18:07 | NUR ---
PT HAS BEEN STABLE SINCE ADMISSION. PAIN CONTROLLED WITH PRN MEDS. PT VOIDING WELL. IV INFUSING. CONT NPO. REPEAT LABS FOR AM. PT HAS NO NAUSEA. TELE, ST. PT HAS BEEN HYPERTENSIVE AND TACHYCARDIC. PT USES CALL LIGHT APPROPRIATELY NEEDED.
--- NOTE | 2020-03-24 04:28 | NUR ---
SHIFT SUMMARY S/P ACUTE PANCREATITIS, A/O X4, VSS, NPO T/O SHIFT, VOIDING WELL, INDEPENDENT IN ROOM, PAIN CONTROLLED PER EMAR. CALL LIGHT IN REACH, WILL CONTINUE TO MONITOR AND REPORT TO ONCOMING DAY RN.
[2020-03-24 05:28] LABS: BASOPHILS ABSOLUTE AUTO 0.05 K/mm3 (0.00-0.23); BASOPHILS PERCENT AUTO 1 % (0-2); EOSINOPHILS ABSOLUTE AUTO 0.15 K/mm3 (0.00-0.68); EOSINOPHILS PERCENT AUTO 2 % (0-6); Hematocrit 39.2 % (37.0-53.0); Hemoglobin 12.9 g/dL (13.5-17.5); IMMATURE GRAN ABSOLUTE AUTO 0.37 K/mm3 (0.00-0.10); IMMATURE GRAN PERCENT AUTO 5 % (0-1); LYMPHOCYTES ABSOLUTE AUTO 1.79 K/mm3 (0.84-5.20); LYMPHOCYTES PERCENT AUTO 25 % (21-46); MONOCYTES PERCENT AUTO 7 % (4-13); Mean Corpuscular HGB 29.3 pg (26.0-34.0); Mean Corpuscular HGB Conc 32.9 g/dL (31.5-36.5); Mean Corpuscular Volume 89 fL (80-100); Mean Platelet Volume 9.6 fL (9.1-12.4); NEUTROPHILS ABSOLUTE AUTO 4.35 K/mm3 (1.96-9.15); NEUTROPHILS PERCENT AUTO 60 % (41-73); Platelet Count 282 K/mm3 (150-400); RDW Coefficient Variation 12.7 % (11.7-14.2); White Blood Cell Count 7.21 K/mm3 (4.00-11.30)
[2020-03-24 06:02] LABS: Alanine Aminotransfer (ALT/SGP 107 U/L (12-78); Albumin, Blood 2.6 g/dL (3.4-5.0); Albumin/Globulin Ratio 0.5 (0.8-1.8); Alk Phos 140 U/L (50-136); Anion Gap 7 mmol/L (6-16); Aspartate Aminotrans (AST/SGOT 85 U/L (12-37); Bilirubin, Total 0.6 mg/dL (0.1-1.0); Blood Urea Nitrogen 12 mg/dL (8-24); Bun/Creatinine Ratio 10.1 (12.0-20.0); CO2, Blood 27 mmol/L (21-32); Calcium, Blood 9.4 mg/dL (8.5-10.1); Chloride, Blood 105 mmol/L (98-108); Creatinine, Blood 1.19 mg/dL (0.60-1.20); Globulin, Blood 4.8 g/dL (2.2-4.0); Glomerular Filtration Rate >60 (60-); Glucose, Blood 101 mg/dL (70-99); Magnesium, Blood 1.9 mg/dL (1.6-2.4); Phosphorus, Blood 3.6 mg/dL (2.5-4.9); Potassium, Blood 3.8 mmol/L (3.5-5.5); Sodium, Blood 139 mmol/L (136-145); Total Protein, Blood 7.4 g/dL (6.4-8.2)
--- NOTE | 2020-03-24 17:51 | NUR ---
PT CONTINUES TO HAVE HTN, PT ASYMPTOMATIC, DR. TROTTER NOTIFIED, SEE NEW ORDER
--- NOTE | 2020-03-24 17:52 | NUR ---
SUMMARY: NO ACUTE CHANGE TODAY. A/O, NOTED HTN OTHERWISE VSS. DIET ADVANCED TOLERATED. PT REPORTS FEELING FINE AFTER SMALL AMTS OF CLEAR AND FULL LIQ. DENIES N/V, OR DISTENTION. PAIN SEEMS TO BE CONTROLED WITH PO MANAGEMENT. PT INDEP IN ROOM. NO ACUTE SAFETY CONCERNS. WILL MONITOR AND REPORT TO NOC RN
--- NOTE | 2020-03-25 06:35 | NUR ---
SHIFT SUMMARY S/P ACUTE PANCREATITIS, A/O X4, VSS, TOLERATING PO, VOIDING WELL, INDEPENDENT IN ROOM. CALL LIGHT IN REACH, WILL CONTINUE TO MONITOR AND REPORT TO ONCOMING DAY RN.
[2020-03-25] MEDS ORDERED: ONDA4ODT MM (13:06)
[2020-03-25] MEDS ORDERED: HYDCHL25 PO (13:06)
[2020-03-25] MEDS ORDERED: Percocet 5-3251 EACH PO (13:06)
--- NOTE | 2020-03-25 15:51 | NUR ---
PT DISCHARGED THE PT VERBALIZED UNDERSTANDING OF THE DC INSTRUCTIONS, THE PT APPEARED TO BE BREATHING EASILY ON RA, THE PTS PRESCRIPTIONS WERE FAXED TO [facility] PER HIS REQUEST, THE PT DECLINED A WHEELCHAIR AND AMBULATED OUT STEADY ON HIS FEET
== END 2020-03-25 15:00 | disposition home or self-care (01) | DRG 440 ==
LOC: ER 08:40 → MEDS 12:26 → SURS 12:36
PROVIDERS: Emergency Medicine; Nurse Practitioner Acute Care; ADMIT Internal Medicine
DX: K85.90 Acute pancreatitis without necrosis or infection, unspecified (principal); E87.6 Hypokalemia; I10 Essential (primary) hypertension; E78.5 Hyperlipidemia, unspecified; K76.0 Fatty (change of) liver, not elsewhere classified; F17.210 Nicotine dependence, cigarettes, uncomplicated
CPT/HCPCS: 36415; 74177; 80053; 81003; 83615; 83690; 83735; 84100; 84478; 84484; 85025; 96365-59; 96375; 96376; 99285-25; A9270; A9270-GY; C9113; J1170; J1650; J2405; J3411; J3475; J3480; J7030; J7042; J7120; Q2038; Q9967

== ENCOUNTER 2021-02-12 12:50 | Emergency (ER) | payer OTHER ==
[~2021-02-12] VITALS: Ht 182.9 cm; Wt 117.0 kg
[~2021-02-12 12:50] MED LIST changes: +HYDCHL25 PO; +Percocet 5-3251 EACH PO
[2021-02-12 13:18] LABS: BASOPHILS ABSOLUTE AUTO 0.08 K/mm3 (0.00-0.23); BASOPHILS PERCENT AUTO 1 % (0-2); EOSINOPHILS ABSOLUTE AUTO 0.15 K/mm3 (0.00-0.68); EOSINOPHILS PERCENT AUTO 2 % (0-6); Hematocrit 45.4 % (37.0-53.0); Hemoglobin 16.7 g/dL (13.5-17.5); IMMATURE GRAN ABSOLUTE AUTO 0.02 K/mm3 (0.00-0.10); IMMATURE GRAN PERCENT AUTO 0 % (0-1); LYMPHOCYTES ABSOLUTE AUTO 2.07 K/mm3 (0.84-5.20); LYMPHOCYTES PERCENT AUTO 31 % (21-46); MONOCYTES ABSOLUTE AUTO 0.45 K/mm3 (0.16-1.47); MONOCYTES PERCENT AUTO 7 % (4-13); Mean Corpuscular HGB 30.3 pg (26.0-34.0); Mean Corpuscular HGB Conc 36.8 g/dL (31.5-36.5); Mean Corpuscular Volume 82 fL (80-100); Mean Platelet Volume 10.6 fL (9.1-12.4); NEUTROPHILS ABSOLUTE AUTO 3.94 K/mm3 (1.96-9.15); NEUTROPHILS PERCENT AUTO 59 % (41-73); Platelet Count 208 K/mm3 (150-400); RDW Coefficient Variation 11.9 % (11.7-14.2); RDW Standard Deviation 35.9 fL (35.1-46.3); Red Blood Cell Count 5.52 M/mm3 (4.30-5.90); White Blood Cell Count 6.71 K/mm3 (4.00-11.30)
[2021-02-12] MEDS ORDERED: HYDROCODONE-AC1 EAC7 PO (13:33)
[2021-02-12] MEDS ORDERED: VERA180ERB PO (13:33)
[2021-02-12 13:48] LABS: Alanine Aminotransfer (ALT/SGP 230 U/L (12-78); Albumin, Blood 3.9 g/dL (3.4-5.0); Albumin/Globulin Ratio 0.7 (0.8-1.8); Alk Phos 130 U/L (50-136); Anion Gap 18 mmol/L (6-16); Aspartate Aminotrans (AST/SGOT 103 U/L (12-37); Bilirubin, Total 1.1 mg/dL (0.1-1.0); Blood Urea Nitrogen 14 mg/dL (8-24); Bun/Creatinine Ratio 13.5 (12.0-20.0); CO2, Blood 25 mmol/L (21-32); Calcium, Blood 10.1 mg/dL (8.5-10.1); Chloride, Blood 79 mmol/L (98-108); Creatinine, Blood 1.04 mg/dL (0.60-1.20); Globulin, Blood 5.4 g/dL (2.2-4.0); Glomerular Filtration Rate >60 (60-); Glucose, Blood 624 mg/dL (70-99); Potassium, Blood 3.4 mmol/L (3.5-5.5); Sodium, Blood 122 mmol/L (136-145); Total Protein, Blood 9.3 g/dL (6.4-8.2)
[2021-02-12 13:50] LABS: Source, Urine Clean Catch
[2021-02-12 13:52] LABS: Appearance, Urine Clear (Clear); Bilirubin, Urine Neg (Neg); Blood, Urine Neg (Neg); Color, Urine Yellow (P-Yellow); Glucose Qualitative, Urine 4+ (Neg); Ketones, Urine 3+ (Neg); Leukocyte Esterase, Urine Neg (Neg); Nitrite, Urine Neg (Neg); Protein, Urine 1+ (Neg); Urobilinogen, Urine NORM (Normal)
[2021-02-12 14:18] LABS: Base Excess Venous 6.2 mmol/L; Bicarbonate Venous 29.6 mmol/L (24.0-30.0); PCO2 Venous 39.8 mmHg (38-42); pH Blood Venous 7.48 (7.34-7.37)
[2021-02-12 14:23] LABS: Beta-hydroxybutyrate 42.9 mg/dL (0.2-2.8); Magnesium, Blood 2.1 mg/dL (1.6-2.4)
[2021-02-12] MEDS ORDERED: METF500 PO (16:38)
== END 2021-02-12 17:18 | disposition home or self-care (01) ==
LOC: ER 12:50
PROVIDERS: Emergency Medicine; Physician Assistant
DX: E11.9 Type 2 diabetes mellitus without complications (principal); E87.6 Hypokalemia; Z88.5 Allergy status to narcotic agent; Z79.899 Other long term (current) drug therapy; Z79.891 Long term (current) use of opiate analgesic; F17.210 Nicotine dependence, cigarettes, uncomplicated
CPT/HCPCS: 36415; 80053; 82010; 82803; 82947; 83036; 83690; 83735; 84100; 85025; 99283; J1815; J7030

== ENCOUNTER 2021-07-14 21:16 | Emergency (ER) | payer OTHER ==
[~2021-07-14] VITALS: Ht 182.9 cm; Wt 124.7 kg
[~2021-07-14 21:16] MED LIST changes: +HYDROCODONE-AC1 EAC7 PO; +METF500 PO; +VERA180ERB PO
== END 2021-07-15 00:32 | disposition left against medical advice (07) ==
LOC: ER 21:16
DX: M54.2 Cervicalgia (principal); M79.601 Pain in right arm; Z53.21 Procedure and treatment not carried out due to patient leaving prior to being seen by health care provider
CPT/HCPCS: 99281

== ENCOUNTER 2023-01-13 02:38 | Inpatient (IN) | payer OTHER ==
[~2023-01-13] VITALS: Ht 182.9 cm; Wt 116.0 kg
[2023-01-13] VITALS (28 sets, daily range): BP systolic 110–173; BP diastolic 56–115
[2023-01-13 03:11] LABS: BASOPHILS ABSOLUTE AUTO 0.08 K/mm3 (0.00-0.23); BASOPHILS PERCENT AUTO 1 % (0-2); EOSINOPHILS ABSOLUTE AUTO 0.04 K/mm3 (0.00-0.68); EOSINOPHILS PERCENT AUTO 1 % (0-6); Hematocrit 36.7 % (37.0-53.0); Hemoglobin 12.6 g/dL (13.5-17.5); IMMATURE GRAN ABSOLUTE AUTO 0.06 K/mm3 (0.00-0.10); IMMATURE GRAN PERCENT AUTO 1 % (0-1); LYMPHOCYTES ABSOLUTE AUTO 2.19 K/mm3 (0.84-5.20); LYMPHOCYTES PERCENT AUTO 33 % (21-46); MONOCYTES PERCENT AUTO 6 % (4-13); Mean Corpuscular HGB Conc 34.3 g/dL (31.5-36.5); Mean Corpuscular Volume 85 fL (80-100); Mean Platelet Volume 9.8 fL (9.1-12.4); NEUTROPHILS ABSOLUTE AUTO 3.94 K/mm3 (1.96-9.15); NEUTROPHILS PERCENT AUTO 59 % (41-73); Platelet Count 173 K/mm3 (150-400); RDW Coefficient Variation 13.6 % (11.7-14.2); RDW Standard Deviation 42.3 fL (35.1-46.3); Red Blood Cell Count 4.34 M/mm3 (4.30-5.90); White Blood Cell Count 6.71 K/mm3 (4.00-11.30)
[2023-01-13 03:15] LABS: Base Excess Venous -8.4 mmol/L; Bicarbonate Venous 18.4 mmol/L (24.0-30.0); PCO2 Venous 33.1 mmHg (38-42); pH Blood Venous 7.33 (7.34-7.37)
[2023-01-13 03:44] LABS: Albumin, Blood 3.4 g/dL (3.4-5.0); Albumin/Globulin Ratio 0.6 (0.8-1.8); Bilirubin, Total 0.6 mg/dL (0.1-1.0); Bun/Creatinine Ratio 10.7 (12.0-20.0); Calcium, Blood 9.2 mg/dL (8.5-10.1); Creatinine, Blood 0.75 mg/dL (0.60-1.20); Globulin, Blood 5.4 g/dL (2.2-4.0); Potassium, Blood 3.9 mmol/L (3.5-5.5); Total Protein, Blood 8.8 g/dL (6.4-8.2)
[2023-01-13 03:49] LABS: Source, Urine Clean Catch
[2023-01-13 03:50] LABS: Bilirubin, Urine Neg (Neg); Blood, Urine 1+ (Neg); Glucose Qualitative, Urine 4+ (Neg); Ketones, Urine 3+ (Neg); Leukocyte Esterase, Urine Neg (Neg); Nitrite, Urine Neg (Neg); Protein, Urine 1+ (Neg); Urobilinogen, Urine NORM (Normal)
[2023-01-13 03:59] LABS: Appearance, Urine Clear (Clear); Color, Urine Pale Yellow (P-Yellow)
[2023-01-13 04:00] LABS: Bacteria Rare /hpf; Red Blood Cells, Urine 0-2 /hpf (0-2); Squamous Epithelial Cells Rare /hpf (Few); White Blood Cells, Urine 0-2 /hpf (0-5)
[2023-01-13 05:40] LABS: Glucose, Blood 536 mg/dL (70-99)
[2023-01-13 06:01] LABS: Anion Gap 20 mmol/L (6-16); Blood Urea Nitrogen 9 mg/dL (8-24); Bun/Creatinine Ratio 13.4 (12.0-20.0); CO2, Blood 18 mmol/L (21-32); Chloride, Blood 92 mmol/L (98-108); Creatinine, Blood 0.67 mg/dL (0.60-1.20); Glomerular Filtration Rate 119 (60-); Phosphorus, Blood 4.4 mg/dL (2.5-4.9); Potassium, Blood 3.9 mmol/L (3.5-5.5); Sodium, Blood 130 mmol/L (136-145)
[2023-01-13 06:02] LABS: Beta-hydroxybutyrate 70.9 mg/dL (0.2-2.8)
--- NOTE | 2023-01-13 06:51 | NUR ---
NEW ER ADMIT TO ICU 3: PT ARRIVED TO THE UNIT FROM THE ER AROUND 0615; PT ADMITTED TO THE UNIT WITH DKA AND ON AN INSULIN DRIP. UPON ARRIVAL CBG IN THE 400'S AND INSULIN GTT STARTED AT 3 UNITS/HR; PT DENIES N/V AT THIS TIME BUT DID THROW UP TWICE IN THE ER, EMESIS BAG PLACED AT BEDSIDE. PT A&O X 4, PLEASANT AND COOPERATIVE. PT ON RA, NO DISTRESS NOTED. ST ON MONITOR WITH HR 100'S AND SBP 110-120'S. PT REPORTS SOME ABD PAIN IN LOWER QUADRANTS; PT STATED THAT HE HAD A BLOODY BOWEL MOVEMENT IN THE ER, HX OF HEMMROIDS BUT HAS NEVER SEEN THIS MUCH BLOOD BEFORE WITH BOWEL MOVEMENTS, DR FARRELL AWARE. NS WITH 20 MEQ KCL INFUSING AT 250 MLS/HR. PIV X 2 THAT BOTH FLUSH AND DRAW BLOOD. CALL LIGHT IN REACH, WILL REPORT OFF TO ONCOMING RN.
--- NOTE | 2023-01-13 07:15 | NUR ---
CARE ASSUMPTION DURING BEDSIDE SHIFT REPORT Audrey MOYER RN THE PT IS ASLEEP IN BED ON RM AIR. PT HAS INSULIN GTT RUNNING AT 3 UNITS/HR AND NS W KCL RUNNING AT 250ML/HR. PT AROUSES TO MY VOICE AND COMMUNICATES APPROPRIATELY. PT DENYING ANY FURTHER NEEDS AT THIS TIME.
[2023-01-13 07:51] LABS: Hematocrit 31.5 % (37.0-53.0); Hemoglobin 10.8 g/dL (13.5-17.5)
[2023-01-13 08:05] LABS: Glucose, Blood 353 mg/dL (70-99)
[2023-01-13 10:52] LABS: Albumin, Blood 2.9 g/dL (3.4-5.0); Anion Gap 14 mmol/L (6-16); Blood Urea Nitrogen 8 mg/dL (8-24); CO2, Blood 23 mmol/L (21-32); Calcium, Blood 9.4 mg/dL (8.5-10.1); Chloride, Blood 94 mmol/L (98-108); Creatinine, Blood 0.62 mg/dL (0.60-1.20); Glomerular Filtration Rate 122 (60-); Glucose, Blood 268 mg/dL (70-99); Phosphorus, Blood 4.4 mg/dL (2.5-4.9); Sodium, Blood 131 mmol/L (136-145)
[2023-01-13 11:32] LABS: Calcium, Blood 9.4 mg/dL (8.5-10.1); Magnesium, Blood 1.7 mg/dL (1.6-2.4)
[2023-01-13 14:25] LABS: Hematocrit 30.9 % (37.0-53.0); Hemoglobin 10.6 g/dL (13.5-17.5)
[2023-01-13 14:45] LABS: Albumin, Blood 2.7 g/dL (3.4-5.0); Anion Gap 12 mmol/L (6-16); Blood Urea Nitrogen 6 mg/dL (8-24); Bun/Creatinine Ratio 9.7 (12.0-20.0); CO2, Blood 24 mmol/L (21-32); Calcium, Blood 9.1 mg/dL (8.5-10.1); Chloride, Blood 96 mmol/L (98-108); Creatinine, Blood 0.62 mg/dL (0.60-1.20); Glomerular Filtration Rate 122 (60-); Glucose, Blood 203 mg/dL (70-99); Phosphorus, Blood 3.7 mg/dL (2.5-4.9); Potassium, Blood 4.3 mmol/L (3.5-5.5); Sodium, Blood 132 mmol/L (136-145)
--- NOTE | 2023-01-13 17:33 | NUR ---
DAY SHIFT SUMMARY PT BEGAN SHIFT ON INSULIN GTT BUT 929 LABS SHOWED THAT THE PT WAS NO LONGER IN DKA AND HIS CBG'S WERE <200. PT TRANSITIONED TO [facility] AND RECIEVED LUNCH. PT WAS NAUSEOUS AT THE START OF SHIFT W ONE EPISODE OF EMESIS BUT AFTER RECEIVING ANTIEMETIC MEDICATION THIS AM HE HAS DENIED ANY NAUSEA AND TOLERATING PO INTAKE WELL. PT HAS NOT HAD A BOWEL MOVEMENT THIS SHIFT AND HAS SHOWN NO S/S OF BLEEDING. PT'S MONITOR SHOWING SR 90'S BUT WHEN HE IS UP OUT OF BED HE IS SINUS TACH 110'S. BP ELEVATED THIS SHIFT BUT IMPROVED AFTER RECEIVING HIS VERAPAMIL. PT REQUIRING 2L NC THIS SHIFT TO MAINTAIN SPO2 >90%, INCENTICE SPIROMETER GIVEN TO THE PT AND HE HAS USED IT T/O THE SHIFT. PT HAS DENIED ANY PAIN THIS SHIFT EXCEPT FOR MINOR LOWER ABDOMINAL PAIN W PALPATION. SANDOSTATIN INFUSING ALL SHIFT. WILL REPORT TO ONCOMING RN.
[2023-01-14 00:04] VITALS: BP 137/93
[2023-01-14 03:57] VITALS: BP 133/89
[2023-01-14 05:55] LABS: BASOPHILS ABSOLUTE AUTO 0.04 K/mm3 (0.00-0.23); BASOPHILS PERCENT AUTO 1 % (0-2); EOSINOPHILS ABSOLUTE AUTO 0.03 K/mm3 (0.00-0.68); EOSINOPHILS PERCENT AUTO 1 % (0-6); Hemoglobin 10.6 g/dL (13.5-17.5); IMMATURE GRAN ABSOLUTE AUTO 0.03 K/mm3 (0.00-0.10); IMMATURE GRAN PERCENT AUTO 1 % (0-1); LYMPHOCYTES ABSOLUTE AUTO 1.58 K/mm3 (0.84-5.20); LYMPHOCYTES PERCENT AUTO 43 % (21-46); MONOCYTES ABSOLUTE AUTO 0.25 K/mm3 (0.16-1.47); MONOCYTES PERCENT AUTO 7 % (4-13); Mean Corpuscular HGB 29.4 pg (26.0-34.0); Mean Corpuscular HGB Conc 34.2 g/dL (31.5-36.5); Mean Corpuscular Volume 86 fL (80-100); Mean Platelet Volume 9.8 fL (9.1-12.4); NEUTROPHILS ABSOLUTE AUTO 1.74 K/mm3 (1.96-9.15); NEUTROPHILS PERCENT AUTO 47 % (41-73); Platelet Count 106 K/mm3 (150-400); RDW Coefficient Variation 13.9 % (11.7-14.2); RDW Standard Deviation 43.2 fL (35.1-46.3); Red Blood Cell Count 3.61 M/mm3 (4.30-5.90); White Blood Cell Count 3.67 K/mm3 (4.00-11.30)
[2023-01-14 06:39] LABS: Albumin, Blood 2.7 g/dL (3.4-5.0); Albumin/Globulin Ratio 0.6 (0.8-1.8); Bilirubin, Total 0.6 mg/dL (0.1-1.0); Bun/Creatinine Ratio 15.1 (12.0-20.0); Creatinine, Blood 0.6 mg/dL (0.60-1.20); Globulin, Blood 4.2 g/dL (2.2-4.0); Potassium, Blood 3.8 mmol/L (3.5-5.5); Total Protein, Blood 6.9 g/dL (6.4-8.2)
[2023-01-14 07:54] VITALS: BP 142/96
--- NOTE | 2023-01-14 14:54 | NUR ---
PATIENT WITH BLOOD SUGAR EARLIER OF [address] ALMAZAN NOTIFIED AND ORDERED CONTINUE WITH LOW SCALE, RECHECK 1 HOUR AFTER GIVING INSULIN AND CALL BACK. FOLLOW UP BG WAS [address] TROTTER CALLED BACK AND ORDERED NEW HIGH SCALE AND TO ADD ON NOW ONLY THE DIFFERENCE OF HIGH SCALE AND WHAT WAS GIVEN ON LOW SCALE. PATIENT STAYING ONE MORE NIGHT, DC TELE AND OXYMETRY. PATIENT ALSO WITH ABDOMINAL PAIN, INTERMITTENT, WITH FIRM DISTENDED ABDOMEN. DR TROTTER WILL ORDER CT OF ABDOMEN.
--- NOTE | 2023-01-14 15:09 | NUR ---
PATIENT LEAVING UNIT FOR CT, DISCONNECTED FROM OCREOTIDE
[2023-01-14 15:22] LABS: Bun/Creatinine Ratio 14.8 (12.0-20.0); Calcium, Blood 8.9 mg/dL (8.5-10.1); Creatinine, Blood 0.61 mg/dL (0.60-1.20)
[2023-01-14 15:54] VITALS: BP 130/93
--- NOTE | 2023-01-14 16:14 | NUR ---
PATIENT RETURNED FROM IMAGING AT 1544
--- NOTE | 2023-01-14 19:39 | NUR ---
PATIENT WITH BLOOD SUGARS RUNNING MOSTLY ABOVE 300 TODAY. ALSO ABDOMINAL PAIN SHARP TO TIGHT INTERMITTENT PAIN 5-7/10 PAIN THROUGHOUT DAY. ABDOMEN DISTENDED AND FIRM.HE DENIES ANY BLOOD IN STOOL THROUGHOUT TODAY. PATIENT DEMONSTRATED FOR LUNCH AND DINNER HOW TO PRIME INSULIN PEN AND SELF ADMINISTER SHORT ACTING AND LONG ACTING INSULIN USING CLEAN TECHNIQUE. BED IN LOW POSITION. CALL LIGHT IN REACH. PATIENT CALLS APPROPRIATELY.
[2023-01-14 20:02] VITALS: BP 129/86
--- NOTE | 2023-01-14 21:15 | NUR ---
CALL TO RESIDENT; CALLED DR. MONTES REGARDING PTS BS OR 365, PER DR. MONTES GIVE AN ADDITIONAL 10 UNITS OF HUMALOG W/ 2100 DOSE OF SLIDING SCALE HUMALOG. PT TO RECEIVE 16 UNITS OF HUMALOG THIS EVENING.
--- NOTE | 2023-01-15 02:45 | NUR ---
CALL TO RESIDENT; CALLED DR. MONTES REGARDINGS CHANGES TO THE PTS ABD AND INCREASING COMPLIANTS OF PAIN AND PAIN ASSOCIATED W/ DEEP BREATHING. PTS ABD IS MORE DISTENDED AND THE SKIN IS TIGHTER COMPARED TO THIS EVENING AROUND 2100. THE PT ALSO ENDORSES SOME LOWER ABD PAIN AND PAIN WHEN HE TAKES A DEEP BREATHE. PER DR. MONTES GIVE 1 TAB OF 5/325 VICODIN FOR PAIN Q6 PRN.
[2023-01-15 02:47] VITALS: BP 143/90
--- NOTE | 2023-01-15 04:04 | NUR ---
SHIFT SUMMARY; NO ACUTE CHANGES OTHER THAN ACUTE ABDOMINAL CHANGES W/ SUBSEQUENT INCREASE IN PAIN IN RELATION TO THE PTS ABD. REFER TO PREVIOUS NOTE ABOUT PTS ACUTE ABDOMINAL CHANGES. THE PT IS AXO X4 AND INDEPENDENT IN THE ROOM. THE PT HAS BEEN SLEEPING IN BED FOR THE MAJORITY OF THE NIGHT. THE PT HAS DENIED ANY OTHER PAIN OTHER THAN ABDOMINAL PAIN. THE PT DENIES ANY SOB, CHEST PAIN/PRESSURE OR N/V. CURRENTLY THE PT IS SITTING IN BED WITH THE BED IN THE LOWEST POSITION AND THE CALL LIGHT AT BEDSIDE. FIRE SAFETY ROUNDS COMPLETED.
[2023-01-15 05:54] LABS: BASOPHILS ABSOLUTE AUTO 0.05 K/mm3 (0.00-0.23); BASOPHILS PERCENT AUTO 1 % (0-2); EOSINOPHILS ABSOLUTE AUTO 0.05 K/mm3 (0.00-0.68); EOSINOPHILS PERCENT AUTO 1 % (0-6); Hematocrit 33.7 % (37.0-53.0); Hemoglobin 11.1 g/dL (13.5-17.5); IMMATURE GRAN ABSOLUTE AUTO 0.02 K/mm3 (0.00-0.10); IMMATURE GRAN PERCENT AUTO 1 % (0-1); LYMPHOCYTES ABSOLUTE AUTO 1.58 K/mm3 (0.84-5.20); LYMPHOCYTES PERCENT AUTO 39 % (21-46); MONOCYTES ABSOLUTE AUTO 0.33 K/mm3 (0.16-1.47); MONOCYTES PERCENT AUTO 8 % (4-13); Mean Corpuscular HGB 28.5 pg (26.0-34.0); Mean Corpuscular HGB Conc 32.9 g/dL (31.5-36.5); Mean Corpuscular Volume 87 fL (80-100); Mean Platelet Volume 9.7 fL (9.1-12.4); NEUTROPHILS ABSOLUTE AUTO 1.99 K/mm3 (1.96-9.15); NEUTROPHILS PERCENT AUTO 50 % (41-73); Platelet Count 104 K/mm3 (150-400); RDW Coefficient Variation 14.2 % (11.7-14.2); Red Blood Cell Count 3.89 M/mm3 (4.30-5.90); White Blood Cell Count 4.02 K/mm3 (4.00-11.30)
[2023-01-15 06:13] LABS: Albumin, Blood 2.7 g/dL (3.4-5.0); Albumin/Globulin Ratio 0.6 (0.8-1.8); Bilirubin, Total 0.4 mg/dL (0.1-1.0); Bun/Creatinine Ratio 14.8 (12.0-20.0); Creatinine, Blood 0.67 mg/dL (0.60-1.20); Globulin, Blood 4.3 g/dL (2.2-4.0); Potassium, Blood 3.5 mmol/L (3.5-5.5)
[2023-01-15 07:55] VITALS: BP 129/96
[2023-01-15] MEDS ORDERED: INSULIN GL100 UNIT/3 SC (14:44)
[2023-01-15] MEDS ORDERED: HUMALOG KW100 UNIT/1 SC (14:45)
--- NOTE | 2023-01-15 15:06 | NUR ---
SHIFT/DISCHARGE SUMMARY Pt remains A&Ox3 this shift. VSS. Lower back pain managed with po meds. Resp even nonlabored. Abd distended, +BS. BM yesterday, voiding without difficulty. Ambulating independently. All discharge instructions reviewed with pt and . Rx faxed over to [facility] as states [facility] is closed. Pt to lobby independently with all belongins.
== END 2023-01-15 15:13 | disposition home or self-care (01) | DRG 638 ==
LOC: ER 02:38 → ICUE 05:35 → MEDS 01-14 00:09
PROVIDERS: Emergency Medicine; Internal Medicine; ADMIT Student in an Organized Health Care Education/Training Program
PROC: HZ2ZZZZ Detoxification Services for Substance Abuse Treatment (ICD-10-PCS; principal; 2023-01-13)
DX: E11.10 Type 2 diabetes mellitus with ketoacidosis without coma (principal); E87.1 Hypo-osmolality and hyponatremia; K76.6 Portal hypertension; K92.1 Melena; E86.0 Dehydration; F10.20 Alcohol dependence, uncomplicated; K42.9 Umbilical hernia without obstruction or gangrene; F17.210 Nicotine dependence, cigarettes, uncomplicated; K64.8 Other hemorrhoids; D64.9 Anemia, unspecified; K72.10 Chronic hepatic failure without coma; R16.2 Hepatomegaly with splenomegaly, not elsewhere classified; K70.31 Alcoholic cirrhosis of liver with ascites; Z71.41 Alcohol abuse counseling and surveillance of alcoholic; Z87.19 Personal history of other diseases of the digestive system; Z88.5 Allergy status to narcotic agent; Z79.891 Long term (current) use of opiate analgesic; Z79.84 Long term (current) use of oral hypoglycemic drugs; Z87.81 Personal history of (healed) traumatic fracture
CPT/HCPCS: 36415; 74176; 76705; 80048; 80053; 80069; 81001; 82010; 82310; 82803; 82947; 83036; 83690; 83735; 85014; 85018; 85025; 93005; 93010; 94762; 96360; 99285-25; A9270; C9113; J0696; J1815; J2354; J2405; J2765; J3411; J3480; J7030; J7050